=== PATIENT | female | born 1990 | race Hispanic/Latino ===

== ENCOUNTER 2016-11-04 09:09 | Inpatient (IN) ==
[2016-11-04] MEDS ORDERED: PEPCID IV ONE (09:30)
[2016-11-04] MEDS ORDERED: BICITRA PO ONE (09:30)
[2016-11-04] MEDS ORDERED: KEFZOL 1 GM/D5W 1 GM/50 ML IVPB IV PRN (09:32)
[2016-11-04] MEDS ORDERED: LR 1,000 ML IV SCH (09:32)
[2016-11-04 10:49] LABS: MANUAL DIFF NEEDED? NO
[2016-11-04 11:07] LABS: URINE SOURCE VOIDED
[2016-11-04 11:08] LABS: BILIRUBIN URINE NEGATIVE (NEGATIVE); BLOOD URINE TRACE (NEGATIVE); CLARITY SLIGHTLY CLOUDY (CLEAR); COLOR YELLOW; GLUCOSE URINE NEGATIVE (NEGATIVE); LEUKOCYTES URINE 2+ (NEGATIVE); NITRITE URINE NEGATIVE (NEGATIVE); PH URINE 6.5; PROTEIN URINE NEGATIVE (NEGATIVE); SP GRAVITY URINE 1.015; UROBILINOGEN URINE NORMAL
[2016-11-04 11:20] LABS: BASO% 0.1 % (0.0-0.8); EOS# 0.01 X1000 (0.0-0.7); EOS% 0.1 % (0.0-10.0); HEMATOCRIT 37.1 % (37.0-47.0); HEMOGLOBIN 12.4 g/dL (12.0-16.0); IMM GRAN# 0.04 X1000 (0.0-0.04); IMM GRAN% 0.5 % (0.0-0.5); LYMPH# 2.07 X1000 (1.2-3.4); LYMPH% 23.3 % (20.5-51.1); MCH 31.7 PG (27-31); MCHC 33.4 g/dL (33-37); MCV 94.9 FL (81-99); MONO# 0.46 X1000 (0.11-0.59); MONO% 5.2 % (1.7-9.3); MPV 12.1 FL (7.4-10.4); NEUT% 70.8 % (42.2-75.2); PLT 128 X1000 (130-400); RBC 3.91 XMIL (4.2-5.4)
[2016-11-04] MEDS ORDERED: EPHEDRINE ONE (11:32)
[2016-11-04] MEDS ORDERED: PITOCIN 20 UNITS/LR 20 UNITS/1,000 ML IV.SOLN ONE (11:34)
[2016-11-04] MEDS ORDERED: DURAMORPH ONE (11:37)
[2016-11-04] MEDS ORDERED: FENTANYL ONE (11:37)
[2016-11-04] MEDS ORDERED: PITOCIN ONE (11:37)
[2016-11-04] MEDS ORDERED: ZOFRAN ONE (11:39)
[2016-11-04] MEDS ORDERED: TORADOL ONE (11:39)
[2016-11-04] MEDS ORDERED: BOOSTRIX VACCINE IM ONE (13:07)
[2016-11-04] MEDS ORDERED: PITOCIN 20 UNITS/LR 20 UNITS/1,000 ML IV.SOLN IV ONE (13:07)
[2016-11-04] MEDS ORDERED: HYDROXYZINE IM PRN (13:07)
[2016-11-04] MEDS ORDERED: CYTOTEC PO PRN (13:07)
[2016-11-04] MEDS ORDERED: DULCOLAX PR PRN (13:07)
[2016-11-04] MEDS ORDERED: AMBIEN PO PRN (13:07)
[2016-11-04] MEDS ORDERED: PITOCIN IM PRN (13:07)
[2016-11-04] MEDS ORDERED: HYDROXYZINE PO PRN (13:07)
[2016-11-04] MEDS ORDERED: M-M-R II VACCINE SUBQ ONE (13:07)
[2016-11-04] MEDS ORDERED: PERCOCET-5 PO PRN (13:07)
[2016-11-04] MEDS ORDERED: PHENERGAN IM PRN (13:07)
[2016-11-04] MEDS ORDERED: MYLICON PO PRN (13:07)
[2016-11-04] MEDS ORDERED: PITOCIN 10 UNITS/LR 10 UNIT/1,000 ML IV.SOLN IV SCH (13:15)
--- NOTE | 2016-11-04 15:02 | HISTORY AND PHYSICAL ---
CHIEF COMPLAINT: History of section x3 with desire for repeat, oligohydramnios. HISTORY OF PRESENT ILLNESS: This is a 26-year-old, G 4, P 3-0-0-3 with intrauterine at 38+ 4 weeks by 21 week+ 5 day ultrasound, EDC 11/14/2016, who presents for scheduled repeat low transverse section. The patient's care has been complicated recently by isolated oligohydramnios and testing has been reassuring. care otherwise has been uncomplicated. The patient has good movement. No loss of fluid. No vaginal bleeding. No abnormal vaginal discharge. No contractions. OBSTETRICAL HISTORY: G 1 through G 3: Full-term section. G 4 current: Complicated by oligohydramnios. PROBATION AGENT HISTORY: Denies sexually transmitted infections or abnormal Paps. PAST MEDICAL HISTORY: Denies. PAST SURGICAL HISTORY: Significant for section x3. ALLERGIES: No known drug allergies. MEDICATIONS: vitamins. FAMILY HISTORY: Noncontributory. REVIEW OF SYSTEMS: Negative. PHYSICAL EXAMINATION: GENERAL: Well-developed, well-nourished, female in no acute distress. HEENT: Pupils equal, round, react to light. Extraocular muscle intact. CHEST: Clear to auscultation bilaterally. CV: Regular rate and rhythm. No murmurs, rubs, or gallops. ABDOMEN: Soft, nontender, gravid. EXTREMITIES: No clubbing, cyanosis, or edema. SKIN: No focal lesions. NEURO: No focal deficits. ASSESSMENT AND PLAN: 1. Intrauterine at 38+ 4 weeks. 2. History of section x3. 3. Undesired fertility. PLAN: I will plan for a repeat low transverse section with bilateral tubal ligation. The risks and benefits of the above procedure, including risks of bleeding, infection, injury to bowel and bladder, as well as the 1-in-300 chance of tubal sterilization failure were discussed with the patient. The patient states that she understands these risks and would like to proceed forward. cc: Handy Nathan MD
[2016-11-04] MEDS: TORADOL IV SCH ×2 (15:06→20:23)
--- NOTE | 2016-11-04 17:17 | OPERATIVE NOTE ---
PROCEDURE DATE: 11/04/2016 PRINCIPAL DIAGNOSES: 1. Intrauterine at 38 +4. 2. Oligohydramnios. 3. History of section x3. 4. Undesired fertility. POSTOPERATIVE DIAGNOSES: 1. Intrauterine at 38 +4. 2. Oligohydramnios. 3. History of section x3. 4. Undesired fertility. 5. Extensive pelvic adhesive disease, uterine window. PROCEDURE: Repeat low-transverse section. SURGEON: Handy Nathan MD. SURFACE GRINDING MACHINE HAND: Dionicio Nash MD. ANESTHESIA: Rito Bell MD. FINDINGS: Significant pelvic adhesive disease obscuring both ovaries and tubes. Inability to mobilize the uterus. Uterine window at lower uterine segment. COMPLICATIONS: None apparent. ESTIMATED BLOOD LOSS: 800 mL. SPECIMENS REMOVED: Placenta, cord blood. OPERATIVE COURSE: After the patient was identified and consents reviewed, spinal anesthesia was administered without complication. On inspection of patient's prior Pfannenstiel incisions, skin was pulled down centrally and scar was wide based. Decision was made at this time to perform a scar revision. A circumferential incision was made around patient's old incision and went and shaved piece of scar tissue was removed. Incision was carried down to the underlying layer of fascia. It was extended laterally with Guzman scissors. Superior portion of the fascial incision was grasped with Bert clamps, elevated, and the underlying rectus muscle dissected off with Guzman scissors. Inferior portion performed in a similar manner. Rectus muscles were then identified and in the midline and at this point, extensive adhesive disease noted obscuring the peritoneum from the uterus. After entering the intraabdominal cavity sharply a uterine window was noted. There is no significant uterine mobility. Low transverse hysterotomy was made. Membranes ruptured. Meconium noted. Infant found to be in cephalic presentation secondary to difficulty delivering the head. Presumably from limited exposure from scar tissue. A vacuum was then used to assist in delivery. Two pop-offs were noted. Infant delivered atraumatically. Nose and mouth were bulb suctioned. Cord was clamped and cut. handed off to awaiting nursing staff. The placenta was then manually extracted. Again, the uterus was noted to be immobile. The uterus was cleaned of all clots and debris and the hysterotomy was repaired using 0 chromic in a running, locked fashion. Inability to identify tubes and ovaries precluded the ability to complete the tubal ligation portion of the procedure. The rectus muscles were then reapproximated using 0 chromic. The fascia was then closed using 0 Vicryl in a running fashion. Subcutaneous tissues closed with plain gut suture and the skin was closed with both 4-0 Biosyn as well as Dermabond. Patient tolerated the procedure well. She was taken to the recovery room afterwards in stable condition. cc: Handy Nathan MD
[2016-11-04] MEDS: PERICOLACE PO SCH (20:22)
[2016-11-04] MEDS: MYLICON PO SCH (20:23)
[2016-11-05] MEDS: TORADOL IV SCH ×2 (01:01→08:38)
[2016-11-05 05:38] LABS: HEMATOCRIT 32.9 % (37.0-47.0); HEMOGLOBIN 10.6 g/dL (12.0-16.0); MCHC 32.2 g/dL (33-37); MCV 96.2 FL (81-99); MPV 11.9 FL (7.4-10.4); RBC 3.42 XMIL (4.2-5.4)
[2016-11-05] MEDS: MYLICON PO SCH ×5 (08:38→20:02)
[2016-11-05] MEDS ORDERED: LR 1,000 ML IV SCH (13:08)
[2016-11-05] MEDS: PERCOCET-10 PO PRN (18:09)
[2016-11-05] MEDS: PERICOLACE PO SCH ×2 (19:57→20:02)
[2016-11-06] MEDS: PERCOCET-10 PO PRN ×2 (00:14→07:25)
[2016-11-06 07:29] VITALS: BP 115/61
[2016-11-06] MEDS: MYLICON PO SCH (08:50)
--- NOTE | 2016-11-07 06:09 | DISCHARGE SUMMARY ---
ADMISSION DATE: 11/04/2016 DISCHARGE DATE: 11/06/2016 ADMITTING DIAGNOSES: 1. Term . 2. Previous section x 3 requesting repeat section. 3. Oligohydramnios. PRINCIPAL DIAGNOSES: 1. Term . 2. Previous section x 3 requesting repeat section. 3. Oligohydramnios. PRINCIPAL PROCEDURES: Repeat low-transverse . SUMMARY: Ciera Vázquez is a 26-year-old, 4, para 3-0-0-3 at term gestation. Her has been complicated by oligohydramnios with reassuring testing. Due to 3 previous sections she was brought in to the hospital on the and underwent a repeat C- section by Dr. Nathan. Extensive pelvic adhesions were noted. There was also noted to be a uterine window. She delivered a 7 pound 5 ounce female with Apgars of 9 at 1 minute and 10 at 5 minutes. There were no intraoperative complications other than the adhesions. Postoperatively she has done well. She has remained afebrile. All vital signs are stable. She had an admission hemoglobin and hematocrit of 12.4/37.1 with discharge hemoglobin and hematocrit being 10.6/32.9. On the day of discharge, cardiac and pulmonary examinations were normal. Bowel and bladder function was normal. Incision was clean and dry. She is having scant vaginal bleeding. Ms. Vázquez will be discharged today and we will see her back in the office in 1 week. Routine discharge instructions, activity limitations, and precautions were discussed. She is given prescriptions for Percocet 10 and Motrin for postoperative pain. She will continue vitamins. cc: MD Handy Sullivan MD
== END 2016-11-06 10:35 | disposition home or self-care (01) ==
LOC: P.LD 09:09 → P.WC 19:37
PROVIDERS: ADMIT Obstetrics & Gynecology; ATTEND Obstetrics & Gynecology